=== PATIENT | male | born 1960 | race Caucasian/White ===

== ENCOUNTER 2020-04-05 10:35 | Emergency (ER) | payer MEDICAID ==
[~2020-04-05] VITALS: Ht 177.8 cm; Wt 79.5 kg
[2020-04-05] MEDS ORDERED: OMEP20 PO (10:45)
[2020-04-05 10:52] VITALS: BP 167/105
[2020-04-05 12:00] LABS: COVID AG,FIA SOURCE NASOPHARYNGEAL
== END 2020-04-05 13:11 | disposition home or self-care (01) ==
LOC: EMS 10:44
DX: M54.5 Low back pain (principal); R10.10 Upper abdominal pain, unspecified; G89.29 Other chronic pain; Z20.822 Contact with and (suspected) exposure to COVID-19; Z87.891 Personal history of nicotine dependence
CPT/HCPCS: 87426; 99283

== ENCOUNTER → 2020-04-07 | Day surgery (SDC) | payer MEDICAID ==
[~2020-04-07] VITALS: Ht 175.3 cm; Wt 79.5 kg
[~2020-04-07] MED LIST: LIDOCAINE/PF 2% 5 ML VIAL IM ONE; OMEP20 PO; PROPOFOL 1% 20 ML VIAL IVP ONE; SODIUM CHLORIDE 0.9% 1,000 ML IV ONE; SODIUM CHLORIDE 0.9% 1,000 ML ONE
== END | disposition home or self-care (01) ==
LOC: SURGERY 10:55
PROVIDERS: ATTEND Internal Medicine Gastroenterology
DX: K63.5 Polyp of colon (principal); K64.8 Other hemorrhoids; K29.50 Unspecified chronic gastritis without bleeding; K21.9 Gastro-esophageal reflux disease without esophagitis; Z87.891 Personal history of nicotine dependence; M19.90 Unspecified osteoarthritis, unspecified site; Z79.899 Other long term (current) drug therapy; Z98.890 Other specified postprocedural states
CPT/HCPCS: 43239; 45380; 88305; 88312; 88313; J2704; J3490; J7030